=== PATIENT | male | born 1985 | race Caucasian/White ===

== ENCOUNTER 2019-06-09 17:43 | Emergency (ER) | payer SELFPAY ==
[2019-06-09 17:43] VITALS: BP 139/79; PULSE 90; RESP 16; TEMP 36.4; O2SAT 98; BMI 23.0
--- NOTE | 2019-06-09 19:57 | CT_ITS ---
STUDY: CT ABDOMEN AND PELVIS WITHOUT CONTRAST REASON FOR EXAM: Male, 33 years old. Right lower quadrant pain x1 day RADIATION DOSAGE (If Supplied By Facility): CTDIvol = ( 7.12 ) mGy, DLP = ( 366.46 ) mGycm TECHNIQUE: Transaxial images were obtained from the dome of the diaphragm to the symphysis pubis without oral contrast, and without intravenous contrast. Sagittal and coronal images were reconstructed. Individualized dose optimization techniques were used for this CT. COMPARISON: None. FINDINGS: There are small faint patchy infiltrates of the left lingula and left lower lobe. The visualized portions of the heart are within normal limits. Normal liver. Normal gallbladder and extrahepatic biliary system. Normal spleen. Normal pancreas. Normal bilateral adrenal glands. Normal right kidney. Normal left kidney. Normal visualized stomach. Normal small intestine. Normal colon. The appendix is visualized and appears normal. Normal abdominal aorta. Normal inferior vena cava. Normal retroperitoneum. Normal urinary bladder. There is a small umbilical hernia containing fat. Normal osseous structures. CT/Abdomen/Pelvis without Cont IMPRESSION: 1. There are small faint patchy infiltrates of the left lingular and left lower lobe. 2. Small fat-containing of the local hernia. 3. There is no evidence of free intra-abdominal or intrapelvic air, fluid, or inflammatory process. Electronically Signed: Melchor Martinez MD at 20:25 EDT , Service support ,
--- NOTE | 2019-06-09 20:00 | ED.VISSUMM ---
- ER Visit Summary Date of Service: 06/09/19 Chief Complaint: Abdominal pain History of Present Illness: The patient is a 33 M who presents with abdominal pain that has been getting worse over the past week. Patient states that initially his pain was mild and diffuse. Patient states that since yesterday his pain is worse and in the right lower quadrant. Patient admits to some nausea and vomiting. Patient states he had 2 episodes of vomiting. Patient denies any hematemesis or coffee-ground emesis. Patient admits to some diarrhea that is loose. Patient denies any melena or hematochezia. Patient admits to decreased appetite. Patient states his pain is worse with movement and relieved with rest. Physical Examination: Vital signs are stable. Patient is afebrile. Patient is in no acute distress. Oral mucosa is pink and moist. Neck is supple. Trachea is midline. There is no JVD noted. Heart was regular rate and rhythm. Lungs are clear and equal bilaterally. Abdomen is soft. Bowel sounds are normal. There is right lower quadrant tenderness over McBurney's point. There is a positive heel strike. There is no Rovsing sign. Obturator sign was negative. There is no guarding noted. Test Results: CBC shows a mild leukocytosis of 13.1. Comprehensive metabolic profile was normal. Urinalysis showed occult blood of 250 but was otherwise within normal limits. CT scan of the abdomen and pelvis was obtained. The appendix was visualized and appeared normal. There is a small umbilical hernia containing fat only. There is no acute intra-abdominal process noted. Emergency Department Course and Treatment: Patient was given IV fluids. She was given a dose of morphine here. Patient is feeling better on reevaluation. Patient was advised that it does not appear to be appendicitis at this time. Patient was instructed to follow-up with his primary care physician in 3 to 5 days. Patient was advised that appendicitis has not been 100% ruled out. However, he was advised that he does not have acute appendicitis that needs emergency surgery at this time. Patient understood and was agreeable with the plan. All questions were answered. Disposition: Discharge home Impression: Right lower quadrant abdominal pain This note was generated with [employer] dictation software. It may contain incorrect words, spelling, and punctuation that were not noted in review of the chart prior to signing ED Disposition - Plan for ED Patient: Disposition: Home or Assisted Living Diagnosis: Right lower quadrant abdominal pain of unknown etiology Instructions: ABDOMINAL PAIN, Unkown Cause, (Male) Referrals: Care Physician,No Primary [Primary Care Provider] - Trent Davidson MD [NON-STAFF] - 3-5 Days
[2019-06-09 20:13] LABS: Absolute Lymphocyte Count 2.84 X10^3/uL (0.83-4.51); Absolute Neutrophil Count 8.6 X10^3/uL (2.0-7.7); Basophil# 0.04 X10^3/uL; Basophil% 0.3 % (0-1); Eosinophil# 0.55 X10^3/uL; Eosinophils% 4.2 % (0-5); Hemoglobin 14.8 g/dL (13.0-16.5); Lymphocyte # 2.84 X10^3/ul (4.0); Lymphocyte % 21.8 % (19-41); Mean Corp Hgb Conc 33.6 g/dL (32-36); Mean Corpuscular Hgb 29.8 pg (27.0-32.0); Mean Corpuscular Volume 88.7 fL (80-94); Mean Platelet Vol. 10.8 fl (6.2-12.0); Monocyte# 0.98 X10^3/uL; Monocyte% 7.5 % (0-10); NRBC Flagged by Analyzer 0 % (0-5); Neutrophil % 65.9 % (47-70); Platelet Count 196 K/mm3 (150-450); RBC Distribution Width CV 11.9 % (11.6-14.6); RBC Distribution Width SD 38.8 fl (35.1-43.9); Red Blood Count 4.96 M/mm3 (4.6-6.2); White Blood Count 13.1 K/mm3 (4.4-11.0)
[2019-06-09 20:19] LABS: ALB/GLOB Ratio 1.5 RATIO (0.9-2.4); AST(SGOT) 12 U/L (15-37); Alanine Aminotransfer ALT/SGPT 30 U/L (16-61); Albumin, Serum 4.4 g/dL (3.2-5.0); Alkaline Phosphatase 55 U/L (45-117); Anion Gap 4 (5-15); BUN 10 mg/dL (7-18); BUN/Creat Ratio 9.9 RATIO (10-20); Chloride 103 mmol/L (98-107); Creatinine, Serum 1.01 mg/dL (0.70-1.30); EST Glomerular Filtration Rate 91 mL/min (>60); Est Glom Filt Rate - Afr Amer 110 mL/min (>60); Estimated Creatinine Clearance 112.18 ml/min; Glucose 91 mg/dL (74-106); Lipase 121 U/L (73-393); Potassium 3.5 mmol/L (3.5-5.1); Protein, Total 7.4 g/dL (6.4-8.2); Sodium Level 137 mmol/L (136-145)
[2019-06-09] MEDS: 0.9% Normal Saline 1,000 ML 1000 ML IV (20:19)
[2019-06-09] MEDS: Morphine 4 MG/ML Syringe IV (20:19)
[2019-06-09 21:34] VITALS: BP 131/72; PULSE 75; RESP 16
[2019-06-09 21:35] LABS: Bacteria 0 SEEN /hpf (None Seen); Mucous, Urine 0 SEEN /hpf (<or=2+); White Blood Cells 0 SEEN /hpf (0-5)
[2019-06-09 21:54] LABS: Color, Urine Yellow (Yellow); Glucose, Dipstick Normal (Normal); Ketone-Dipstick Negative (Negative); Leukocyte Esterase-Dipstick Negative /ul (Negative); Nitrite-Dipstick Negative (Negative); Occult Blood-Urine 250 /ul (Negative); Protein-Dipstick Negative (Negative); Specific Gravity, Urine 1.015 (1.002-1.030); Urine Bilirubin Dipstick Negative (Negative); Urine Clarity Sl. Cloudy (Clear); Urine Urobilinogen Normal (Normal)
[2019-06-09 22:01] LABS: Red Blood Cells-Urine 5-10 SEEN /hpf (0-5); Squamous Epithelial Cells - UA 0-5 SEEN /hpf (0-5)
== END 2019-06-09 22:44 | disposition home or self-care (01) ==
PROVIDERS: Emergency Provider Emergency Medicine
DX: R10.31 Right lower quadrant pain (principal); R11.2 Nausea with vomiting, unspecified; R19.7 Diarrhea, unspecified; K42.9 Umbilical hernia without obstruction or gangrene; R68.83 Chills (without fever); J34.89 Other specified disorders of nose and nasal sinuses; R07.9 Chest pain, unspecified; M54.9 Dorsalgia, unspecified; F17.200 Nicotine dependence, unspecified, uncomplicated
CPT/HCPCS: 74176; 80053; 81001; 83690; 85025; 96361; 96374; 99284; J7030; A4216

== ENCOUNTER 2019-12-05 13:38 | Emergency (ER) | payer MEDICAID, SELFPAY ==
[2019-12-05 13:39] VITALS: BP 132/72; PULSE 71; RESP 16; TEMP 36.6; O2SAT 99; BMI 24.4
--- NOTE | 2019-12-05 14:23 | ED.VISSUMM ---
- ER Visit Summary Date of Service: 12/05/19 Chief Complaint: Dental pain History of Present Illness: The patient is a 34 M who presents with left lower dental pain that began yesterday. Patient states he noted some swelling today. Patient describes his pain as aching. Patient admits to some cold sensitivity. Patient states he called his dentist who referred him to the emergency department because he was unable to be seen today. Physical Examination: Vital signs are stable. Patient is afebrile. Patient is in no acute distress. Oral mucosa is pink and moist. There are multiple dental caries. There is tenderness over the left lower first premolar, canine, and lateral incisor. There is some mild gingival edema around these teeth. There is no fluctuance or evidence of any abscess. There is no sublingual edema or erythema. There is no evidence of Ty angina. Oropharynx is clear. Airway is patent. Neck is supple. Trachea is midline. There is no JVD. Cranial nerves II through XII are intact. There are no focal motor or sensory deficits noted. Emergency Department Course and Treatment: Patient was given a prescription for Pen-Vee K. Patient was instructed to take Tylenol or ibuprofen as needed for pain. Patient was instructed to follow-up with his dentist in 5 to 7 days. Patient understood and was agreeable with the plan. All questions were answered. Disposition: Discharge home Impression: Infected dental caries This note was generated with [employer] dictation software. It may contain incorrect words, spelling, and punctuation that were not noted in review of the chart prior to signing ED Disposition - Plan for ED Patient: Disposition: Home or Assisted Living Diagnosis: Infected dental caries Instructions: Dental Cavity Prescriptions: Penicillin V Potassium 500 mg PO 4X/DAY #40 tab Prescription Printed Referrals: Care Physician,No Primary [NON-STAFF] - Dentist,Your [STAFF PHYSICIAN] - 3-5 Days
== END 2019-12-05 14:43 | disposition home or self-care (01) ==
LOC: ED 14:28
PROVIDERS: Emergency Provider Emergency Medicine; Family Provider Family Medicine; PCP Family Medicine
DX: K04.7 Periapical abscess without sinus (principal); K02.9 Dental caries, unspecified; J34.89 Other specified disorders of nose and nasal sinuses; F17.200 Nicotine dependence, unspecified, uncomplicated
CPT/HCPCS: 99282